=== PATIENT | female | born 1945 | race Caucasian/White ===

== ENCOUNTER → 2017-11-23 | Outpatient (CLI) | payer MEDICARE, OTHER ==
[~2017-11-23] MED LIST: ABILIFY10 MG; BENICAR HCT 201 EACH; ECOTRIN; PAXIL10 MG; ZOCOR; ZYRTEC 10 MG TA10 MG
== END ==
LOC: M.RAD 09:58
DX: R05 Cough (principal)

== ENCOUNTER → 2018-02-15 | Outpatient (CLI) | payer MEDICARE, OTHER | LOC: M.RAD 16:17 | DX: R06.02 Shortness of breath (principal) ==

== ENCOUNTER → 2018-06-21 | Outpatient (CLI) | payer MEDICARE, OTHER | LOC: M.RAD 15:39 | DX: R06.02 Shortness of breath (principal); R06.01 Orthopnea; I10 Essential (primary) hypertension; E78.5 Hyperlipidemia, unspecified; K21.9 Gastro-esophageal reflux disease without esophagitis ==

== ENCOUNTER → 2019-06-04 | Outpatient (CLI) | payer MEDICARE, OTHER | LOC: M.RAD 12:24 | DX: M19.071 Primary osteoarthritis, right ankle and foot (principal); I10 Essential (primary) hypertension ==

== ENCOUNTER → 2020-10-21 | Outpatient (CLI) | payer MEDICARE, OTHER ==
[~2020-10-21] MED LIST changes: +ALLOPURINOL 10100 M3 PO; +HYDROCODON-ACE1 EAC7 PO; +LEVO-T75 MCG PO; +NIFEDIPINE ER30 M1 PO; +OLANZAPINE PO; +PROTONIX40 M2 PO; +SIMVASTATIN40 MG PO; +VENLAFAXINE H37.5 M2 PO; +XARELTO20 MG PO; -ZOCOR
== END ==
LOC: M.PC 08:49
PROVIDERS: ATTEND Physical Medicine & Rehabilitation
DX: M51.36 Other intervertebral disc degeneration, lumbar region (principal); M47.816 Spondylosis without myelopathy or radiculopathy, lumbar region